=== PATIENT | male | born 1960 | race Caucasian/White ===

== ENCOUNTER 2017-12-28 20:39 | Emergency (ER) | payer BC ==
[~2017-12-28] VITALS: Ht 195.6 cm; Wt 144.0 kg
[~2017-12-28 20:39] MED LIST: CEPH500C5 PO
[2017-12-28] MEDS ORDERED: diltiazem 30mg tablet PO ONE ×2 (21:15→21:30)
[2017-12-28 21:20] LABS: BASOPHILS % (AUTO) 0.6 % (0-1); EOSINOPHILS # (AUTO) 0.2 X10'3 (0-0.9); EOSINOPHILS % (AUTO) 2.8 % (0-6); HEMATOCRIT 45.5 % (42.0-52.0); HEMOGLOBIN 15.6 g/dl (14.0-17.9); LYMPHOCYTES # (AUTO) 1.7 X10'3 (1.1-4.8); LYMPHOCYTES % (AUTO) 23.1 % (21-51); MEAN CORPUSCULAR HEMOGLOBIN 30.7 PG (27.0-31.0); MEAN CORPUSCULAR HGB CONC 34.3 % (33.0-36.5); MEAN CORPUSCULAR VOLUME 89.4 FL (78-98); MEAN PLATELET VOLUME 7.8 FL (7.4-10.4); MONOCYTES # (AUTO) 0.7 X10'3 (0-0.9); MONOCYTES % (AUTO) 9.4 % (2-12); NEUTROPHILS # (AUTO) 4.8 X10'3 (1.8-7.7); NEUTROPHILS % (AUTO) 64.1 % (42-75); PLATELET COUNT 225 X10'3 (140-440); RED BLOOD COUNT 5.09 X10'6 (4.70-6.10); RED CELL DISTRIBUTION WIDTH 15.2 % (11.5-14.5); WHITE BLOOD COUNT 7.5 X10'3 (4.5-11.0)
[2017-12-28] MEDS ORDERED: furosemide 10 MG/1 ML 10ml inj IV ONE (21:30)
[2017-12-28 21:41] LABS: ALANINE AMINOTRANSFERASE 45 U/L (12-78); ALBUMIN 3.3 G/DL (3.4-5.0); ALBUMIN/GLOBULIN RATIO 0.7 (1.1-1.5); ALKALINE PHOSPHATASE 123 IU/L (46-116); ANION GAP 9 (8-16); ASPARTATE AMINO TRANSFERASE 34 U/L (10-37); BILIRUBIN,TOTAL 0.4 MG/DL (0.1-1.0); BLOOD UREA NITROGEN 20 MG/DL (7-18); BUN/CREATININE RATIO 18.3 (5.4-32.0); CALCIUM 8.9 MG/DL (8.5-10.1); CHLORIDE 101 MMOL/L (99-107); CREATININE 1.09 MG/DL (0.60-1.10); GLUCOSE 106 MG/DL (70-104); MAGNESIUM 1.7 MG/DL (1.5-2.4); POTASSIUM 3.3 MMOL/L (3.5-5.1); SODIUM 139 MMOL/L (135-145); TOTAL CARBON DIOXIDE 28.9 MMOL/L (24-32); eGFR 70 ML/MIN
[2017-12-28 21:52] LABS: D-DIMER 0.24 MG/L FEU (0-0.50)
[2017-12-28] MEDS ORDERED: levoFLOXACIN 250mg tablet PO ONE (23:00)
[2017-12-28] MEDS ORDERED: BENZ-38 PO ×2 (23:00→23:05)
[2017-12-28] MEDS ORDERED: LEVO500T2 PO (23:00)
[2017-12-28] MEDS ORDERED: ipratropium/albuterol 3ml nebule NEB ONE (23:05)
[2017-12-28] MEDS ORDERED: benzonatate 100mg capsule PO ONE (23:05)
[2017-12-28] MEDS ORDERED: oseltamivir phos 75mg capsule PO ONE (23:20)
[2017-12-28] MEDS ORDERED: TAM75C PO (23:21)
[2017-12-28] MEDS ORDERED: potassium Cl 20 mEq SR tablet PO STA (23:38)
[2017-12-29 00:14] VITALS: BP 127/89
[2017-12-30] MEDS ORDERED: LISI-600 PO ×2 (03:59→11:35)
[2017-12-30] MEDS ORDERED: ATOR10TA70 PO (03:59)
[2017-12-30] MEDS ORDERED: CHLO25TA2 PO ×2 (03:59→11:33)
[2017-12-30] MEDS ORDERED: DILT30TA5 (03:59)
[2017-12-30] MEDS ORDERED: DABI150C PO (03:59)
[2017-12-30] MEDS ORDERED: PRAV20TA PO (11:32)
[2017-12-30] MEDS ORDERED: DILT180C95 PO (11:34)
== END 2017-12-29 00:16 | disposition home or self-care (01) ==
LOC: ER 20:39
DX: J18.1 Lobar pneumonia, unspecified organism (principal); R91.1 Solitary pulmonary nodule; J10.1 Influenza due to other identified influenza virus with other respiratory manifestations; F17.210 Nicotine dependence, cigarettes, uncomplicated
CPT/HCPCS: 36415; 71045; 71250; 80053; 83735; 83880; 84145; 84484; 85025; 85379; 87502; 87503; 93005; 94640; 94760; 96374; 99285; J1940

== ENCOUNTER 2017-12-30 02:05 | Inpatient (IN) | payer BC ==
[~2017-12-30] VITALS: Ht 195.6 cm; Wt 140.9 kg
[~2017-12-30 02:05] MED LIST changes: +BENZ-38 PO; +LEVO500T2 PO; +TAM75C PO
[2017-12-30] MEDS ORDERED: ipratropium/albuterol 3ml nebule NEB ONE (02:45)
[2017-12-30] MEDS ORDERED: normal saline 1000ML IV soln IVB ONE (02:45)
[2017-12-30 02:48] LABS: BASOPHILS % (AUTO) 0.4 % (0-1); EOSINOPHILS # (AUTO) 0.2 X10'3 (0-0.9); EOSINOPHILS % (AUTO) 2.3 % (0-6); HEMATOCRIT 46.8 % (42.0-52.0); LYMPHOCYTES # (AUTO) 2.2 X10'3 (1.1-4.8); LYMPHOCYTES % (AUTO) 25.6 % (21-51); MEAN CORPUSCULAR HEMOGLOBIN 30.5 PG (27.0-31.0); MEAN CORPUSCULAR HGB CONC 34.1 % (33.0-36.5); MEAN CORPUSCULAR VOLUME 89.6 FL (78-98); MEAN PLATELET VOLUME 8.1 FL (7.4-10.4); MONOCYTES # (AUTO) 0.6 X10'3 (0-0.9); MONOCYTES % (AUTO) 7.5 % (2-12); NEUTROPHILS # (AUTO) 5.5 X10'3 (1.8-7.7); NEUTROPHILS % (AUTO) 64.2 % (42-75); PLATELET COUNT 227 X10'3 (140-440); RED BLOOD COUNT 5.23 X10'6 (4.70-6.10); RED CELL DISTRIBUTION WIDTH 15.3 % (11.5-14.5); WHITE BLOOD COUNT 8.6 X10'3 (4.5-11.0)
[2017-12-30 03:01] LABS: INR 1.1 INR; PARTIAL THROMBOPLASTIN TIME 36 SECONDS (22-32); PROTHROMBIN TIME 11.1 SECONDS (9.0-12.0)
[2017-12-30 03:04] LABS: ALANINE AMINOTRANSFERASE 42 U/L (12-78); ALBUMIN 3.4 G/DL (3.4-5.0); ALBUMIN/GLOBULIN RATIO 0.7 (1.1-1.5); ALKALINE PHOSPHATASE 127 IU/L (46-116); ANION GAP 11 (8-16); ASPARTATE AMINO TRANSFERASE 37 U/L (10-37); BILIRUBIN,TOTAL 0.4 MG/DL (0.1-1.0); BLOOD UREA NITROGEN 18 MG/DL (7-18); BUN/CREATININE RATIO 18.2 (5.4-32.0); CALCIUM 8.8 MG/DL (8.5-10.1); CHLORIDE 102 MMOL/L (99-107); CREATININE 0.99 MG/DL (0.60-1.10); GLUCOSE 121 MG/DL (70-104); POTASSIUM 3.3 MMOL/L (3.5-5.1); SODIUM 140 MMOL/L (135-145); TOTAL CARBON DIOXIDE 26.7 MMOL/L (24-32); TOTAL PROTEIN 8.2 G/DL (6.4-8.2); eGFR 78 ML/MIN
[2017-12-30] MEDS ORDERED: ondansetron/PF 4mg/2ml inj IV PRN (03:40)
[2017-12-30] MEDS ORDERED: magnesium hydroxide 30ml (MOM) UD suspension PO PRN (03:40)
[2017-12-30] MEDS ORDERED: mag hydrox/Alum hydrox/simeth 30ml oral suspension PO PRN (03:40)
[2017-12-30] MEDS ORDERED: DABI150C PO (03:59)
[2017-12-30] MEDS ORDERED: LISI-600 PO ×2 (03:59→11:35)
[2017-12-30] MEDS ORDERED: ATOR10TA70 PO (03:59)
[2017-12-30] MEDS ORDERED: DILT30TA5 (03:59)
[2017-12-30] MEDS ORDERED: CHLO25TA2 PO ×2 (03:59→11:33)
[2017-12-30] MEDS: potassium Cl 20mEq in NS 1,000 ML IV SCH (05:23)
[2017-12-30] MEDS: LORazepam 1 MG tablet PO PRN ×3 (06:50→17:50)
[2017-12-30] MEDS: levoFLOXACIN 500mg tablet PO SCH (07:29)
[2017-12-30] MEDS: diltiazem CD 180mg cap (once-daily) PO SCH (07:29)
[2017-12-30] MEDS: oseltamivir phos 75mg capsule PO SCH ×2 (07:29→20:01)
[2017-12-30] MEDS: dabigatran 150mg capsule PO SCH ×2 (08:08→20:01)
[2017-12-30] MEDS ORDERED: magnesium Cl slow-release 64mg tablet PO PRN (08:50)
[2017-12-30] MEDS ORDERED: potassium Cl 40MEQ/NS 500ml 500 ML IV PRN ×2 (08:50)
[2017-12-30] MEDS ORDERED: magnesium 2GM in 50ml NS 50 ML IV PRN (08:50)
[2017-12-30] MEDS ORDERED: potassium Cl 20 mEq SR tablet PO PRN (08:50)
[2017-12-30] MEDS ORDERED: magnesium 4gm in 100ml NS 100 ML IV PRN (08:50)
[2017-12-30] MEDS: potassium Cl 20 mEq SR tablet PO PRN ×3 (08:52→17:50)
[2017-12-30] MEDS ORDERED: PRAV20TA PO (11:32)
[2017-12-30] MEDS ORDERED: DILT180C95 PO (11:34)
[2017-12-30] MEDS: benzonatate 100mg capsule PO PRN ×2 (13:09→17:50)
[2017-12-30 16:02] VITALS: BP 126/89
[2017-12-30 20:00] VITALS: BP 108/72
[2017-12-30] MEDS: lactobacillus rhamnosus 10,000 MMU CELLS/CAPSULE PO SCH (20:01)
[2017-12-30 23:50] VITALS: BP 133/96
[2017-12-31] MEDS: potassium Cl 20mEq in NS 1,000 ML IV SCH ×2 (00:01→19:39)
[2017-12-31] MEDS: clindamycin 600mg/D5W 50ml 50 ML IV SCH ×3 (00:01→17:04)
[2017-12-31] MEDS: acetaminophen 325mg tablet PO PRN ×2 (01:03→08:26)
[2017-12-31] MEDS: HYDROcodone/acetaminophen 5mg/325mg tablet PO PRN ×3 (05:19→21:09)
[2017-12-31 06:00] VITALS: BP 136/88
[2017-12-31 06:03] LABS: MAGNESIUM 1.8 MG/DL (1.5-2.4); POTASSIUM 3.9 MMOL/L (3.5-5.1)
[2017-12-31] MEDS: K and/or MAG REPLACEMENT MC SCH (08:00)
[2017-12-31] MEDS: diltiazem CD 180mg cap (once-daily) PO SCH (08:18)
[2017-12-31] MEDS: levoFLOXACIN 500mg tablet PO SCH (08:19)
[2017-12-31] MEDS: oseltamivir phos 75mg capsule PO SCH ×2 (08:19→19:25)
[2017-12-31] MEDS: lactobacillus rhamnosus 10,000 MMU CELLS/CAPSULE PO SCH ×2 (08:19→19:25)
[2017-12-31] MEDS: dabigatran 150mg capsule PO SCH ×2 (08:24→19:25)
[2017-12-31 11:00] VITALS: BP 111/80
[2017-12-31 14:25] VITALS: BP 101/47
[2017-12-31 18:30] VITALS: BP 141/76
[2017-12-31] MEDS: LORazepam 1 MG tablet PO PRN (19:26)
[2017-12-31 23:30] VITALS: BP 140/98
[2018-01-01] MEDS: LORazepam 1 MG tablet PO PRN (00:11)
[2018-01-01] MEDS: clindamycin 600mg/D5W 50ml 50 ML IV SCH ×2 (00:14→09:38)
[2018-01-01] MEDS ORDERED: Melatonin 3mg tablet PO PRN (00:30)
[2018-01-01] MEDS: HYDROcodone/acetaminophen 5mg/325mg tablet PO PRN (02:46)
[2018-01-01 05:29] LABS: MAGNESIUM 1.7 MG/DL (1.5-2.4); POTASSIUM 3.6 MMOL/L (3.5-5.1)
[2018-01-01 07:21] VITALS: BP 141/57
[2018-01-01 07:29] VITALS: BP 129/80
[2018-01-01] MEDS: K and/or MAG REPLACEMENT MC SCH (08:00)
[2018-01-01] MEDS ORDERED: ALBU8.5H8 INH (09:02)
[2018-01-01] MEDS ORDERED: METH4TAB81 PO (09:02)
[2018-01-01] MEDS ORDERED: FURO-149 PO (09:02)
[2018-01-01] MEDS ORDERED: FLUT1BLS3 INH (09:02)
[2018-01-01] MEDS: potassium Cl 20mEq in NS 1,000 ML IV SCH (09:38)
[2018-01-01] MEDS: oseltamivir phos 75mg capsule PO SCH (09:38)
[2018-01-01] MEDS: diltiazem CD 180mg cap (once-daily) PO SCH (09:38)
[2018-01-01] MEDS: levoFLOXACIN 500mg tablet PO SCH (09:39)
[2018-01-01] MEDS: lactobacillus rhamnosus 10,000 MMU CELLS/CAPSULE PO SCH (09:39)
[2018-01-01] MEDS: dabigatran 150mg capsule PO SCH (09:39)
[2018-01-01 12:28] VITALS: BP 134/68
== END 2018-01-01 13:19 | disposition home or self-care (01) | DRG 871 ==
LOC: ER 02:05 → ED HOLD 03:39 → SUR 3N 15:33
PROVIDERS: ADMIT Internal Medicine; ATTEND Internal Medicine
DX: A41.9 Sepsis, unspecified organism (principal); J96.01 Acute respiratory failure with hypoxia; J18.9 Pneumonia, unspecified organism; I50.9 Heart failure, unspecified; Z99.81 Dependence on supplemental oxygen; J44.0 Chronic obstructive pulmonary disease with (acute) lower respiratory infection; E66.01 Morbid (severe) obesity due to excess calories; R91.1 Solitary pulmonary nodule; E04.1 Nontoxic single thyroid nodule; I48.2 Chronic atrial fibrillation; J10.1 Influenza due to other identified influenza virus with other respiratory manifestations; Z68.36 Body mass index [BMI] 36.0-36.9, adult; Z87.891 Personal history of nicotine dependence; Z79.899 Other long term (current) drug therapy; Z79.01 Long term (current) use of anticoagulants; Z79.82 Long term (current) use of aspirin
CPT/HCPCS: 36415; 71045; 76536; 80053; 83605; 83735; 84132; 84145; 85025; 85610; 85730; 87040; 87070; 93005; 94640; 94760; 96360; 99285; A6212; J3490; J7030